=== PATIENT | male | born 1960 | race Caucasian/White ===

== ENCOUNTER 2018-12-31 15:20 | Outpatient (CLI) | payer OTHER ==
--- NOTE | 2018-12-31 15:43 | RAD ---
Exam: 3 views lumbar spine HISTORY: Disability evaluation. Low back pain FINDINGS: 5 lumbar type vertebra. Vertebral body height is maintained. No fracture. Vacuum disc pheno fauzia at L4-L5 and L5-S1. Straightening of normal lumbar lordosis. Mild degenerative change of posterior elements at L3-L4, L4-L5 and L5-S1. IMPRESSION: Severe degenerative change in the L4-L5 and L5-S1 level. MRI if clinically warranted.
== END 2018-12-31 15:21 | disposition home or self-care (01) ==
LOC: NAV RAD 15:20
PROVIDERS: ATTEND Family Medicine
DX: Z02.71 Encounter for disability determination (principal); M47.26 Other spondylosis with radiculopathy, lumbar region; M47.27 Other spondylosis with radiculopathy, lumbosacral region
CPT/HCPCS: 72100